=== PATIENT | female | born 1985 | race Caucasian/White ===

== ENCOUNTER → 2022-04-25 09:45 | Outpatient (CLI) | payer BC, MEDICAID, SELFPAY ==
--- NOTE | ~2022-04-25 | XR_ITS ---
EXAMINATION: XR knee RT 3V DATE: 04/25/2022 10:12 INDICATION: Right knee pain TECHNIQUE: Three views of the right knee were obtained. COMPARISON: None. FINDINGS: Alignment is normal. No fracture or osteochondral lesion. Joint spaces are normal with no e rosions. No joint effusion/synovitis. Soft tissues are unremarkable. IMPRESSION: 1. No acute osseous abnormality. Reviewed, dictated and finalized at location B. [employer]
== END ==
PROVIDERS: PCP Chiropractor; Visit Provider Chiropractor
DX: M25.561 Pain in right knee (principal)
CPT/HCPCS: 73562

== ENCOUNTER 2024-05-20 11:51 | Outpatient (CLI) | payer SELFPAY ==
--- NOTE | ~2024-05-20 | XR_ITS ---
EXAMINATION: XR thoracic spine 2V DATE: 05/20/2024 12:19 INDICATION: Thoracic abscess. Thoracic lump. TECHNIQUE: 2 views of thoracic spine were obtained. COMPARISON: None. FINDINGS: There is 12 degrees levoscoliosis of thoracic spine. There is mild chronic anterior wedging of T11 vertebral body, likely physiologic. Intervertebral disc heights are normal. There is multilev el mild facet joint osteoarthritis. IMPRESSION: 1. Thoracic levoscoliosis. Reviewed, dictated and finalized at location A. [employer]ATOR IMPRESSION: 1. Thoracic levoscoliosis.
== END 2024-05-20 11:52 | disposition home or self-care (01) ==
DX: L02.213 Cutaneous abscess of chest wall (principal); M41.84 Other forms of scoliosis, thoracic region
CPT/HCPCS: 72070

== ENCOUNTER 2025-02-07 09:57 | Outpatient (CLI) | payer OTHER, SELFPAY ==
--- NOTE | ~2025-02-07 | MR_ITS ---
EXAMINATION: MR knee RT wo con DATE: 02/07/2025 10:42 INDICATION: Right knee pain. TECHNIQUE: Magnetic resonance imaging (MRI) of the right knee was performed without intravenous contrast. Sequences included axial PD-weighted FS FSE, coronal PD-weighted FSE and PD-weighted FS FSE, sagittal PD-weighted FSE, and sagittal T2-weighted FS FSE. COMPARISON: Right knee radiographs 04/25/2022 FINDINGS: Medial compartment: Medial meniscus is normal. There is shallow partial-thickness cartilage loss of femoral condyle involving the posterior articular surface. There is cartilage surface irregularity of femoral condyle and tibial condyle. Lateral compartment: Lateral meniscus is normal. There is full-thickness cartilage loss of femoral condyle involving the central and posterior articular surface in an area measuring 13 x 7 mm with undermining of the adjacent cartilage. Patellofemoral compartment: There is deep partial-thickness cartilage loss of patellar medial facet and shallow partial-thickness cartilage loss of patellar median ridge. There is cartilage surface irregularity of trochlea. Ligaments and tendons: The anterior and posterior cruciate ligaments are normal. There are changes of prior sprains of medial collateral ligament and lateral collateral ligament characterized by thickening and increased signal intensity proximally. There is mild patellar tendinopathy. Fluid: There is a moderate-sized knee joint effusion. There is a small Jean's cyst. There is mild superficial infrapatellar bursitis. IMPRESSION: 1. Severe chondrosis of lateral compartment, moderate chondrosis of patellofemoral compartment, and mild chondrosis of medial compartment. 2. Moderate-sized knee joint effusion. 3. Small Jean's cyst. Reviewed, dictated and finalized at location E. IMPRESSION: 1. Severe chondrosis of lateral compartment, moderate chondrosis of patellofemo ral compartment, and mild chondrosis of medial compartment. 2. Moderate-sized knee joint effusion. 3. Small Jean's cyst.
== END 2025-02-07 09:58 | disposition home or self-care (01) ==
LOC: MICIMG 09:58
PROVIDERS: PCP Chiropractor
DX: M23.8X1 Other internal derangements of right knee (principal); M71.21 Synovial cyst of popliteal space [Baker], right knee; M25.461 Effusion, right knee
CPT/HCPCS: 73721